=== PATIENT | male | born 2005 | race Caucasian/White ===

== ENCOUNTER 2025-07-26 10:40 | Emergency (ER) | payer OTHER, SELFPAY ==
[2025-07-26 10:50] VITALS: BP 125/86; PULSE 90; RESP 18; TEMP 36.6; O2SAT 99
--- NOTE | 2025-07-26 11:01 | ED.SKABFB ---
HPI - Skin/Abscess/Foreign Bdy General Chief complaint: Skin/Abscess/Foreign Body Stated complaint: Skin Infection Time Seen by Provider: 07/26/25 11:03 Source: patient and RN notes reviewed Mode of arrival: ambulatory Limitations: no limitations History of Present Illness HPI narrative: 19-year-old male presents concern for nipple irritation. Reports it flares and then eases but he has dry flaky skin that is very itchy, sometimes it will become red and swollen and sometimes has clear discharge. It has been happening about 2 weeks. He denies any general malaise or fever. complaint: rash Related Data Allergies Allergy/AdvReac Type Severity Reaction Status Date / Time No Known Allergies Allergy Verified 07/26/25 11:02 Review of Systems Review of Systems: CONSTITUTIONAL: Denies malaise, chills, sweats, or fever. EYES: Denies redness, or discharge. ENT: Denies rhinorrhea, congestion, swollen lips, swollen tongue CARDIOVASCULAR: Denies chest pain, palpitations, or edema. RESPIRATORY: Denies cough or dyspnea. GASTROINTESTINAL: Denies abdominal pain, nausea, vomiting SKIN: Reports rash on bilateral nipples MUSCULOSKELETAL: Denies joint pain or myalgia. NEUROLOGIC: Denies headache. All systems reviewed & are unremarkable except as noted in HPI and below PMFSH Comments At time of signature, agree with nursing past medical, surgical, social and family history. There is no relevant family history pertinent to the presenting complaint Exam Narrative: GENERAL: Well-appearing, well-nourished, and in no acute distress. HEAD: Normocephalic, atraumatic. EYES: PERRLA, conjunctivae clear, and EOMI. ENT: Mucous membranes moist. Oropharynx without edema, erythema or lesions. NECK: Supple. No lymphadenopathy CHEST: Clear to auscultation. No respiratory distress. HEART: Regular rate and rhythm. SKIN: Warm, dry. Dry flaky skin noted to bilateral nipples without surrounding erythema, edema or induration. No drainage. NEURO: Alert and oriented x3. PSYCH: Normal mood and affect Course Course Emergency Course: Patient is aware of diagnosis, understands and agrees to treatment plan. Anticipatory guidance given. Patient agrees to follow-up as directed and is aware of reasons to seek care at the emergency department. Portions of this record may have been created with voice recognition software Level of Care: Express Care Visit Vital Signs Vital signs: Vital Signs Temperature 97.8 F 07/26/25 10:50 Pulse Rate 90 07/26/25 10:50 Respiratory Rate 18 07/26/25 10:50 Blood Pressure 125/86 07/26/25 10:50 Pulse Oximetry 99 07/26/25 10:50 Oxygen Delivery Room Air 07/26/25 10:50 Temperature 97.8 F 07/26/25 10:50 Pulse Rate 90 07/26/25 10:50 Respiratory Rate 18 07/26/25 10:50 Blood Pressure 125/86 07/26/25 10:50 Pulse Oximetry 99 07/26/25 10:50 Oxygen Delivery Room Air 07/26/25 10:50 Reviewed. MDM - Skin/Abscess/Foreign Bdy MDM Narrative Medical decision making narrative: Does not appear at this time to be erythema multiforme, bullous, SJS, TEN; no evidence at this time to suggest RMSF, endocarditis or Lyme disease; patient looks well, nontoxic and is tolerating oral intake; no neurologic signs or symptoms; no headache, photophobia or neck pain; afebrile; appropriate for initial outpatient treatment; discussed the importance of follow-up, patient agrees; question, viral exanthema, contact dermatitis, allergic dermatitis, eczema, urticaria, [ xx ]. No soft palate or uvula edema, no tongue, lip edema or other mucosal involvement, no respiratory compromise, no stridor, no wheezing, no wheezing, no history of syncope, no hypotension, no nausea, vomiting, or diarrhea. Instructed patient to go to nearest ER immediately for any worsening symptoms including but not limited to: fever, spreading rash, pain, sore throat, headache, dizziness, chest pain, trouble breathing, or any symptoms concerning to the patient. Critical Care Time Critical Care Time Critical Care Time: No Discharge Plan Discharge Clinical Impression: Dermatitis of nipple Patient Disposition: Home Condition: Stable Instructions: Dermatitis (ED) Additional Instructions: Wash the area with gentle soap and water only. Use skin cream as prescribed Avoid scratching when possible to prevent worsening of the condition and disruption of the skin that could lead to bacterial infection To relieve itching, place a cool washcloth or some ice over the area that itches, rather than scratching Follow up with primary care provider or seek ER if you have trouble breathing, become hoarse, or start wheezing, develop belly cramps, vomiting or feel dizzy. Patient Language: Icelandic Prescriptions: New clotrimazole-betamethasone 1-0.05 % cream 1 applic TOPICAL BID 28 Days Qty: 45 1RF Follow-up/Referrals: UNKNOWN,DOCTOR [Primary Care Provider] Time of Disposition: 11:20
== END 2025-07-26 11:23 | disposition home or self-care (01) ==
PROVIDERS: Emergency Provider Nurse Practitioner
DX: L30.9 Dermatitis, unspecified (principal)
CPT/HCPCS: 99203; G0463